=== PATIENT | female | born 1945 | race Caucasian/White ===

== ENCOUNTER 2017-03-01 18:29 | Emergency (ER) | payer OTHER ==
[~2017-03-01] VITALS: Ht 149.9 cm; Wt 93.4 kg
[2017-03-01 18:38] VITALS: BP 159/99
--- NOTE | 2017-03-01 21:18 | NUR ---
TO ER BED 4
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
[2017-03-01] MEDS ORDERED: LIDOCAINE 1% 500 MG/50 ML VIAL INJ ONE (21:35)
[2017-03-01] MEDS ORDERED: LIDOCAINE 1% ED 50 ML ONE (21:39)
[2017-03-01 23:00] VITALS: BP 147/78
--- NOTE | 2017-03-01 23:00 | NUR ---
Patient discharged with v/s stable. Written and verbal after care instructions given and explained. Patient verbalized understanding. Ambulatory with steady gait. All questions addressed prior to discharge. Advised to follow up with PMD.
== END 2017-03-01 23:00 | disposition home or self-care (01) ==
LOC: MED 18:29
DX: S62.631A Displaced fracture of distal phalanx of left index finger, initial encounter for closed fracture (principal); I10 Essential (primary) hypertension; W23.0XXA Caught, crushed, jammed, or pinched between moving objects, initial encounter; Y93.89 Activity, other specified; Y92.098 Other place in other non-institutional residence as the place of occurrence of the external cause; Y99.8 Other external cause status
CPT/HCPCS: 12001; 73130; 99284; J2001

== ENCOUNTER 2017-03-03 10:03 | Emergency (ER) | payer OTHER ==
[~2017-03-03] VITALS: Ht 152.4 cm; Wt 93.0 kg
[2017-03-03 10:06] VITALS: BP 155/92
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
--- NOTE | 2017-03-03 10:15 | NUR ---
ER MD FULTON EVALUATING PT AT BEDSIDE
[2017-03-03] MEDS ORDERED: NEOMYCIN/POLYMYXIN/BACITRACIN 0.9 GM/1 PKT TP ONE (10:32)
[2017-03-03 10:41] VITALS: BP 145/76
== END 2017-03-03 10:41 | disposition home or self-care (01) ==
LOC: MED 10:03
DX: S62.601D Fracture of unspecified phalanx of left index finger, subsequent encounter for fracture with routine healing (principal); I10 Essential (primary) hypertension; W22.8XXD Striking against or struck by other objects, subsequent encounter; Y92.89 Other specified places as the place of occurrence of the external cause; Y99.8 Other external cause status

== ENCOUNTER 2021-02-08 21:59 | Emergency (ER) | payer OTHER ==
[~2021-02-08] VITALS: Ht 154.9 cm; Wt 90.7 kg
[2021-02-08 22:03] VITALS: BP 195/85
--- NOTE | 2021-02-08 22:05 | NUR ---
TO LOBBY A/W BED AMBULATORY WITH SON
[2021-02-08 22:43] LABS: BASOPHILS % (AUTO) 0.6 % (0.0-2.0); EOSINOPHILS # (AUTO) 0.2 K/uL (0-0.4); EOSINOPHILS % (AUTO) 2.6 % (0.0-4.0); HEMATOCRIT 41.2 % (36-48); HEMOGLOBIN 13.7 g/dL (12.0-16.0); LYMPHOCYTES # (AUTO) 1.8 K/uL (2.5-16.5); LYMPHOCYTES % (AUTO) 30.3 % (20.5-51.1); MEAN CORPUSCULAR HEMOGLOBIN 30 pg (27-31); MEAN CORPUSCULAR HGB CONC 33 g/dL (33-37); MEAN CORPUSCULAR VOLUME 91.1 fL (80-94); MONOCYTES # (AUTO) 0.5 K/uL (0.8-1.0); MONOCYTES % (AUTO) 8.6 % (1.7-9.3); NEUTROPHILS # (AUTO) 3.5 K/uL (1.8-7.7); NEUTROPHILS % (AUTO) 57.9 % (42.2-75.2); PLATELET COUNT (AUTO) 217 K/uL (140-450); RED BLOOD CELL COUNT(AUTO) 4.52 MIL/uL (4.20-5.40); RED CELL DISTRIBUTION WIDTH 14.2 % (11.6-13.7); WHITE BLOOD COUNT (AUTO) 6.1 K/uL (4.8-10.8)
--- NOTE | 2021-02-08 22:45 | NUR ---
EKG PERFORMED IN TRIAGE ROOM WITH TRIAGE NURSE PRESENT. EKG READS SINUS RHYTHM @ 58
[2021-02-08 23:11] LABS: ALBUMIN 3.9 g/dL (3.4-5.0); ASPARTATE AMINOTRANSFERASE 19 U/L (15-37); CARBON DIOXIDE 29.6 mmol/L (21-32); CHLORIDE 105 mmol/L (98-107); CREATININE 0.9 mg/dL (0.6-1.3); GLUCOSE 104 mg/dL (74-106); POTASSIUM 3.6 mmol/L (3.5-5.1); SODIUM SERUM 141 mmol/L (136-145); TOTAL BILIRUBIN 0.2 mg/dL (0.0-1.0); UREA NITROGEN, BLOOD 18 mg/dL (7-18)
--- NOTE | 2021-02-08 23:35 | NUR ---
SEE PATIENT ASSESSMENT FOR MORE INFORMATION.
--- NOTE | 2021-02-08 23:35 | NUR ---
ERMD AT BEDSIDE ASSESSING PATIENT.
[2021-02-09] MEDS ORDERED: HYDR-1093 PO (00:13)
[2021-02-09] MEDS ORDERED: CLON0.1T16 PO (00:13)
[2021-02-09] MEDS: HYDROXYZINE HYDROCHLORIDE 25 MG TAB PO ONE (00:24)
[2021-02-09] MEDS: CLONIDINE HYDROCHLORIDE 0.1 MG TAB PO ONE (00:26)
[2021-02-09 00:56] VITALS: BP 140/79
--- NOTE | 2021-02-09 00:56 | NUR ---
NO IV WAS INSERTED, D/T NO IV INDICATION AT THIS TIME.
--- NOTE | 2021-02-09 00:56 | NUR ---
Patient discharged with v/s stable. Written and verbal after care instructions given and explained. Patient alert, oriented and verbalized understanding of instructions. Ambulatory with steady gait. All questions addressed prior to discharge. ID band removed. Patient advised to follow up with PMD. Rx of CATAPRES, HYDROXYZINE HCL given. Patient educated on indication of medication including possible reaction and side effects. Opportunity to ask questions provided and answered.
== END 2021-02-09 00:56 | disposition home or self-care (01) ==
LOC: MED 21:59
DX: R00.2 Palpitations (principal); I10 Essential (primary) hypertension; E11.9 Type 2 diabetes mellitus without complications; Z79.899 Other long term (current) drug therapy
CPT/HCPCS: 36415; 71045; 80053; 84484; 85025; 93005; 99285

== ENCOUNTER 2021-05-19 20:31 | Emergency (ER) | payer OTHER ==
[~2021-05-19] VITALS: Ht 157.5 cm; Wt 86.2 kg
[~2021-05-19 20:31] MED LIST: CLON0.1T16 PO; HYDR-1093 PO
--- NOTE | 2021-05-19 20:45 | NUR ---
TO LOBBY FOLLOWING TRIAGE
[2021-05-19] MEDS ORDERED: LIDOCAINE MPF 1% 5 ML ONE (22:41)
[2021-05-19] MEDS ORDERED: LIDOCAINE MPF 1% 10 MG/ML VIAL INJ ONE (22:45)
[2021-05-19] MEDS ORDERED: CEPH-588 PO (23:15)
== END 2021-05-19 23:31 | disposition home or self-care (01) ==
LOC: MED 20:31
DX: S60.451A Superficial foreign body of left index finger, initial encounter (principal); X58.XXXA Exposure to other specified factors, initial encounter; Y93.89 Activity, other specified; Y92.89 Other specified places as the place of occurrence of the external cause; Y99.8 Other external cause status
CPT/HCPCS: 10120; 73130; 99284; J2001